=== PATIENT | male | born 1985 | race Caucasian/White ===

== ENCOUNTER 2019-06-23 16:10 | Emergency (ER) | payer OTHER ==
[2019-06-23 16:50] LABS: Absolute Lymphocytes (CBC) 1.7 K/uL (0.7-4.9); Basophils % 0.6 % (0-1.3); Hematocrit 38.6 % (39.6-49.0); Lymphocytes % 24.7 % (15.3-44.8); MPV 8.8 fL (7.6-11.3); RBC Red Blood Cell Count 4.15 M/uL (4.33-5.43)
[2019-06-23 17:03] LABS: Potassium 3.8 mmol/L (3.5-5.1)
--- NOTE | 2019-06-23 17:08 | RAD REPORT ---
EXAM DESCRIPTION: CT - Chest Abdomen Pelvis W Cont - 06/23/2019 4:43 pm CLINICAL HISTORY: Chest and abdomen pain. 15' fall with mid thoracic spine pain COMPARISON: No comparisons TECHNIQUE: Approximately 100 mL nonionic IV contrast was administered to the patient. All CT scans are performed using dose optimization technique as appropriate and may include automated exposure control or mA/KV adjustment according to patient size. FINDINGS: The lungs are clear.No pleural or pericardial effusion.No intrathoracic adenopathy. The liver, spleen, pancreas, adrenal glands and kidneys are within normal limits. No bowel obstruction, free air, free fluid or abscess. Appendectomy. No pathologic lymphadenopathy i n the abdomen or pelvis. Acute fracture with surrounding paraspinal hematoma affects T8 vertebral level. The vertebral body de monstrates mild to moderate loss of vertebral body height estimated at 25%. Fracture is seen to exten d into both pedicles involving both lateral masses as well as the spinous process of T7. No canal com promise is seen, however. In addition there are hairline fractures of the left posterior T8, T7 and T 6 and T5 ribs. There is also minimal fracture of the T5 spinous process. IMPRESSION: T8 thoracic vertebral level fracture is present with moderate surrounding paraspinal hem atoma however without canal compromise.The fracture is seen to extend into the posterior elements inc luding both pedicles, lateral masses as well as the T7 spinous process. Mild T5 spinous process fract ure also seen. Nondisplaced fractures involve the left posterior T5-8 ribs.
[2019-06-23] MEDS ORDERED: TETANUS & DIPHTHERIA TOX,ADULT 0.5 ML VIAL ONE (17:43)
--- NOTE | 2019-06-23 17:44 | ER ---
Nurse's Notes [facility] Name: Juarez Lucas Age: 34 yrs Sex: Male : 1985 Arrival Date: 06/23/2019 Time: 16:13 Bed 2 Private MD: Diagnosis: T8 fracture with 25% height loss, T5-T8 posterior rib fracture, T5 spinus process fracture. Presentation: 06/23 16:17 Presenting complaint: Patient states: Was cutting limb near tree house and fell approx ph 15 feet, landed on back, denies LOC, c/o chest and back pain, abrasions and bruising noted to tonia legs, pt denies dizziness or SOB. Transition of care: patient was not received from another setting of care. Onset of symptoms was June 23, 2019. Risk Assessment: Do you want to hurt yourself or someone else? Patient reports no desire to harm self or others. Initial Sepsis Screen: Does the patient meet any 2 criteria? No. Patient's initial sepsis screen is negative. Does the patient have a suspected source of infection? No. Patient's initial sepsis screen is negative. Care prior to arrival: None. 16:17 Method Of Arrival: Wheelchair ph 16:17 Acuity: SUSU 2 ph Historical: - Allergies: 16:19 No Known Allergies; ph - Home Meds: 16:19 None [Active]; ph - PMHx: 16:19 None; ph - PSHx: 16:19 ankle; ph Screenin:30 Abuse screen: Denies threats or abuse. Denies injuries from another. Nutritional sg screening: No deficits noted. Tuberculosis screening: No symptoms or risk factors identified. Never had TB. Fall Risk None identified. Primary Survey: 16:30 NO uncontrolled hemorrhage observed. A: The patient is alert. Airway: patent, No sg supplemental oxygen in use on arrival. Oral cavity: clear, Trachea midline. Breathing/Chest: Respiratory pattern: regular, Respiratory effort: spontaneous, unlabored, Breath sounds: clear, Chest inspection: symmetrical rise and fall of the chest. Circulation: Heart tones present. Pulses: palpable right radial artery, right dorsalis pedis artery, left radial artery and left dorsalis pedis artery. Skin color: pink. Disability Alert. Exposure/Environment: All clothing and personal items were removed. Forensic evidence collection is not deemed to be indicated at this time. Items placed in patient belonging bag. There is no evidence of uncontrolled external bleeding. No obvious injuries are noted at this time. Secondary Survey: 16:30 HEENT: Head Other abrasion to left side occipital area Face No injury/deformity Eyes: sg No injury or deformity noted. Ears: clear bilaterally. Nose: clear to bilateral nares. Throat: No injury or deformity noted. Gastrointestinal: Abdomen is soft, non-distended. : No signs and/or symptoms were reported regarding the genitourinary system. Musculoskeletal: Circulation, motion, and sensation intact. Range of motion: intact in all extremities, Swelling absent Reports pain in lumbar area ambulatory from ground to car for transport to ER. Assessment: 16:30 Reassessment: Patient appears in no apparent distress at this time. Patient and/or sg family updated on plan of care and expected duration. Pain level reassessed. Patient is alert, oriented x 3, equal unlabored respirations, skin warm/dry/pink. 17:30 Reassessment: Patient appears in no apparent distress at this time. Patient and/or sg family updated on plan of care and expected duration. Pain level reassessed. Patient is alert, oriented x 3, equal unlabored respirations, skin warm/dry/pink. 17:55 Reassessment: at bedside updating on POC, New orders, results and need for sg transfer, pt and pt family stated understanding. 18:00 Reassessment: Patient appears in no apparent distress at this time. Patient and/or sg family updated on plan of care and expected duration. Pain level reassessed. Patient is alert, oriented x 3, equal unlabored respirations, skin warm/dry/pink. pt transported back to CT for CT head and C-Spine. 18:12 Reassessment: Patient appears in no apparent distress at this time. awaiting CT results sg of head and neck prior to calling report to receiving facility at this time. 18:40 Reassessment: Patient appears in no apparent distress at this time. Patient and/or sg family updated on plan of care and expected duration. Pain level reassessed. Patient is alert, oriented x 3, equal unlabored respirations, skin warm/dry/pink. pt medicated as ordered, pt family remains at bedside, awaiting transport to receiving facility at this time. 18:45 Reassessment: report called to ALEJANDRO Weber for [facility]. sg 19:05 Reassessment: complaints of back pain, ED provider aware with order made and carried rr5 out. General: Appears in no apparent distress. uncomfortable, Behavior is calm, cooperative, appropriate for age. Pain: Complains of pain in back Pain radiates to abdomen Pain currently is 8 out of 10 on a pain scale. Quality of pain is described as aching, Pain began suddenly, Is intermittent. Neuro: Level of Consciousness is awake, alert, obeys commands, Oriented to person, place, time, situation, Appropriate for age. Cardiovascular: Capillary refill < 3 seconds Patient's skin is warm and dry. Respiratory: Airway is patent Respiratory effort is even, unlabored, Respiratory pattern is regular, symmetrical. GI: No signs and/or symptoms were reported involving the gastrointestinal system. : No signs and/or symptoms were reported regarding the genitourinary system. EENT: No signs and/or symptoms were reported regarding the EENT system. Derm: Skin is intact, is healthy with good turgor, Skin temperature is warm. Musculoskeletal: Capillary refill Reports pain in back Pain is 8 out of 10 on a pain scale. 19:30 Reassessment: ED provider aware with order made and carried out. Patient states rr5 symptoms have not improved. Pain: Complains of pain in back Pain currently is 8 out of 10 on a pain scale. Quality of pain is described as aching. 20:00 Reassessment: Patient appears in no apparent distress at this time. Patient and/or rr5 family updated on plan of care and expected duration. Pain level reassessed. report given to [facility] vitally stable, breathing spontaneously at room air. for transfer to [facility]. Patient states symptoms have improved. Vital Signs: 16:19 BP 145 / 83; Pulse 78; Resp 18; Temp 97.8; Pulse Ox 98% on R/A; Weight 102.06 kg; ph 17:09 BP 110 / 63; Pulse 59; Resp 18; Pulse Ox 99% on R/A; mh5 18:41 BP 110 / 63; Pulse 51; Resp 18; Temp 100.0(O); Pulse Ox 99% on R/A; mh5 19:05 BP 141 / 75; Pulse 55; Resp 16; Temp 99.5; Pulse Ox 99% ; Pain 8/10; rr5 19:52 BP 156 / 81; Pulse 67; Resp 16; Pulse Ox 96% on R/A; rv Kermit Coma Score: 19:05 Eye Response: spontaneous(4). Verbal Response: oriented(5). Motor Response: obeys rr5 commands(6). Total: 15. Trauma Score (Adult): 19:05 Eye Response: spontaneous(1); Verbal Response: oriented(1); Motor Response: obeys rr5 commands(2); Systolic BP: > 89 mm Hg(4); Respiratory Rate: 10 to 29 per min(4); Kermit Score: 15; Trauma Score: 12 ED Course: 16:13 Patient arrived in ED. mr 16:15 Niko Hunt MD is Attending Physician. kdr 16:18 Triage completed. ph 16:28 Initial lab(s) drawn, by me, sent to lab. Inserted saline lock: 20 gauge in right sg antecubital area, using aseptic technique. Blood collected. 16:30 Pulse ox on. NIBP on. Warm blanket given. Head of bed lowered. sg 16:33 Geremias Suárez, RN is Primary Nurse. sg 16:42 CT completed. Patient tolerated procedure well. Patient moved back from CT. mw3 16:43 CT Chest, Abdomen, Pelvis - W/Contrast In Process Unspecified. EDMS 17:10 Patient has correct armband on for positive identification. Placed in gown. mh5 17:[address] via stretcher. sg 18:02 CT Head C Spine In Process Unspecified. EDMS 18:06 Patient moved back from CT. sg 20:00 No provider procedures requiring assistance completed. Patient transferred, IV remains rr5 in place. intact, No redness/swelling at site. Administered Medications: 18:00 Drug: Tetanus-Diphtheria Toxoid Adult 0.5 ml {Bufferer: Kiip. Exp: 01/04/2021. Lot #: [id number]. } Route: IM; Site: right deltoid; 18:40 Follow up: Response: No adverse reaction sg 18:40 Drug: morphine 4 mg Route: IVP; Site: right antecubital; sg 19:05 Follow up: Response: No adverse reaction; Pain is unchanged, physician notified; RASS: rr5 Alert and Calm (0) 18:42 Drug: Zofran 4 mg Route: IVP; Site: right antecubital; sg 19:30 Follow up: Response: No adverse reaction rr5 19:06 Drug: morphine 4 mg {Note: rass 0.} Route: IVP; Site: right antecubital; rv 19:30 Follow up: Response: Pain is unchanged, physician notified; RASS: Alert and Calm (0) rr5 19:11 Drug: NS 0.9% 1000 ml Route: IV; Rate: 1 bolus; Site: right antecubital; rr5 20:00 Follow up: IV Status: Infusion continued upon transfer rr5 19:31 Drug: Zofran 4 mg Route: IVP; Site: right antecubital; rr5 20:00 Follow up: Response: No adverse reaction rr5 19:33 Drug: Dilaudid 1 mg {Note: rass 0.} Route: IVP; Site: right antecubital; rr5 20:05 Follow up: Response: No adverse reaction; Pain is decreased; RASS: Alert and Calm (0) rr5 20:00 Drug: morphine 4 mg {Note: rass 0.} Route: IVP; Site: right antecubital; rr5 20:03 Follow up: Response: Other; RASS: Alert and Calm (0); admisnistered prior to transfer rr5 Intake: Output: 19:30 Urine: 750ml (Voided); Total: 750ml. rr5 Outcome: 17:43 ER care complete, transfer ordered by . kdr 20:00 Transferred by ground EMS to [facility], Transfer form completed. rr5 20:00 Condition: stable rr5 20:00 Instructed on the need for transfer. 20:05 Patient's length of stay in the Emergency Department was greater than 2 hours. awaiting rr5 for transferPatient's length of stay extended due to 20:07 Patient left the ED. rr5 Signatures: Dispatcher [employer] EDMS Geremias Suárez RN RN sg Rittger, Kevin, MD MD [facility] Sharyn Pastrana Patricia, RN RN Siobhan Mejia Julienne Martin 3 Isiah Tariq RN RN Paul Haas RN RN rr5
--- NOTE | 2019-06-23 17:45 | EDPHYS ---
Physician Documentation [facility] Name: Juarez Lucas Age: 34 yrs Sex: Male : 1985 Arrival Date: 06/23/2019 Time: 16:13 Bed 2 Private MD: ED Physician Niko Hunt HPI: 06/23 16:27 This 34 yrs old Male presents to ER via Wheelchair with complaints of Fall kdr Injury. 16:27 Details of fall: The patient fell from a height, from a ladder, approximately 15 feet. kdr Onset: The symptoms/episode began/occurred suddenly, just prior to arrival. Associated injuries: The patient sustained upper back injury, decreased range of motion, pain, pain with movement, tenderness. Severity of symptoms: At their worst the symptoms were mild, just prior to arrival, in the emergency department the symptoms are unchanged. The patient has not experienced similar symptoms in the past. The patient has not recently seen a physician. Historical: - Allergies: 16:19 No Known Allergies; ph - Home Meds: 16:19 None [Active]; ph - PMHx: 16:19 None; ph - PSHx: 16:19 ankle; ph ROS: 16:27 Constitutional: Negative for fever, chills, and weight loss, Eyes: Negative for injury, kdr pain, redness, and discharge, ENT: Negative for injury, pain, and discharge, Neck: Negative for injury, pain, and swelling, Cardiovascular: Negative for chest pain, palpitations, and edema, Respiratory: Negative for shortness of breath, cough, wheezing, and pleuritic chest pain, Abdomen/GI: Negative for abdominal pain, nausea, vomiting, diarrhea, and constipation, : Negative for injury, bleeding, discharge, and swelling, MS/Extremity: Negative for deformity - there are multiple abrasions to both knees Skin: Negative for injury, rash, and discoloration, Neuro: Negative for headache, weakness, numbness, tingling, and seizure activity. Psych: Negative for depression, anxiety, suicide ideation, homicidal ideation, and hallucinations, Allergy/Immunology: Negative for hives, rash, and allergies, Endocrine: Negative for neck swelling, polydipsia, polyuria, polyphagia, and marked weight changes, Hematologic/Lymphatic: Negative for swollen nodes, abnormal bleeding, and unusual bruising. 16:27 Back: Positive for injury or acute deformity, pain at rest, pain with movement, of the thoracic area. Exam: 16:27 Constitutional: This is a well developed, well nourished patient who is awake, alert, kdr and in no acute distress. Head/Face: Normocephalic, atraumatic. Eyes: Pupils equal round and reactive to light, extra-ocular motions intact. Lids and lashes normal. Conjunctiva and sclera are non-icteric and not injected. Cornea within normal limits. Periorbital areas with no swelling, redness, or edema. Neck: Trachea midline, no thyromegaly or masses palpated, and no cervical lymphadenopathy. Supple, full range of motion without nuchal rigidity, or vertebral point tenderness. No Meningismus. Chest/axilla: Normal chest wall appearance and motion. Nontender with no deformity. No lesions are appreciated. Cardiovascular: Regular rate and rhythm with a normal S1 and S2. No gallops, murmurs, or rubs. Normal PMI, no JVD. No pulse deficits. Respiratory: Lungs have equal breath sounds bilaterally, clear to auscultation and percussion. No rales, rhonchi or wheezes noted. No increased work of breathing, no retractions or nasal flaring. Abdomen/GI: Soft, non-tender, with normal bowel sounds. No distension or tympany. No guarding or rebound. No evidence of tenderness throughout. Skin: Warm, dry with normal turgor. Normal color with no rashes, no lesions, and no evidence of cellulitis. MS/ Extremity: Pulses equal, no cyanosis. Neurovascular intact. Full, normal range of motion. Neuro: Awake and alert, GCS 15, oriented to person, place, time, and situation. Cranial nerves II-XII grossly intact. Motor strength 5/5 in all extremities. Sensory grossly intact. Cerebellar exam normal. Normal gait. Psych: Awake, alert, with orientation to person, place and time. Behavior, mood, and affect are within normal limits. 16:27 Back: pain, that is mild, of the thoracic area, ROM is painful, with all movement, normal spinal alignment noted, CVA tenderness, is absent. Vital Signs: 16:19 BP 145 / 83; Pulse 78; Resp 18; Temp 97.8; Pulse Ox 98% on R/A; Weight 102.06 kg; ph 17:09 BP 110 / 63; Pulse 59; Resp 18; Pulse Ox 99% on R/A; mh5 18:41 BP 110 / 63; Pulse 51; Resp 18; Temp 100.0(O); Pulse Ox 99% on R/A; mh5 19:05 BP 141 / 75; Pulse 55; Resp 16; Temp 99.5; Pulse Ox 99% ; Pain 8/10; rr5 19:52 BP 156 / 81; Pulse 67; Resp 16; Pulse Ox 96% on R/A; rv Jaylen Coma Score: 19:05 Eye Response: spontaneous(4). Verbal Response: oriented(5). Motor Response: obeys rr5 commands(6). Total: 15. Trauma Score (Adult): 19:05 Eye Response: spontaneous(1); Verbal Response: oriented(1); Motor Response: obeys rr5 commands(2); Systolic BP: > 89 mm Hg(4); Respiratory Rate: 10 to 29 per min(4); [place] Score: 15; Trauma Score: 12 MDM: 16:27 Data reviewed: vital signs, nurses notes, lab test result(s), radiologic studies. kdr Counseling: I had a detailed discussion with the patient and/or guardian regarding: the historical points, exam findings, and any diagnostic results supporting the discharge/admit diagnosis, lab results, radiology results, the need for outpatient follow up. 17:43 Patient medically screened. [facility] 06/23 16:22 Order name: Basic Metabolic Panel; Complete Time: 17:30 [facility] 06/23 16:22 Order name: CBC with Diff; Complete Time: 17:30 [facility] 06/23 16:22 Order name: CT Chest, Abdomen, Pelvis - W/Contrast; Complete Time: 17:30 [facility] 06/23 16:22 Order name: Creatinine for Radiology; Complete Time: 17:30 [facility] 06/23 16:22 Order name: Type And Screen [facility] 06/23 17:37 Order name: CT Head C Spine [facility] 06/23 16:22 Order name: Labs collected and sent; Complete Time: 16:33 kdr Administered Medications: 18:00 Drug: Tetanus-Diphtheria Toxoid Adult 0.5 ml {Manager Steel: Balzo. Exp: sg 01/04/2021. Lot #: [id number]. } Route: IM; Site: right deltoid; 18:40 Follow up: Response: No adverse reaction sg 18:40 Drug: morphine 4 mg Route: IVP; Site: right antecubital; sg 19:05 Follow up: Response: No adverse reaction; Pain is unchanged, physician notified; RASS: rr5 Alert and Calm (0) 18:42 Drug: Zofran 4 mg Route: IVP; Site: right antecubital; sg 19:30 Follow up: Response: No adverse reaction rr5 19:06 Drug: morphine 4 mg {Note: rass 0.} Route: IVP; Site: right antecubital; rv 19:30 Follow up: Response: Pain is unchanged, physician notified; RASS: Alert and Calm (0) rr5 19:11 Drug: NS 0.9% 1000 ml Route: IV; Rate: 1 bolus; Site: right antecubital; rr5 20:00 Follow up: IV Status: Infusion continued upon transfer rr5 19:31 Drug: Zofran 4 mg Route: IVP; Site: right antecubital; rr5 20:00 Follow up: Response: No adverse reaction rr5 19:33 Drug: Dilaudid 1 mg {Note: rass 0.} Route: IVP; Site: right antecubital; rr5 20:05 Follow up: Response: No adverse reaction; Pain is decreased; RASS: Alert and Calm (0) rr5 20:00 Drug: morphine 4 mg {Note: rass 0.} Route: IVP; Site: right antecubital; rr5 20:03 Follow up: Response: Other; RASS: Alert and Calm (0); admisnistered prior to transfer rr5 Disposition: 06/23/19 17:43 Transfer ordered to [facility]. Diagnosis is T8 fracture with 25% height loss, T5-T8 posterior rib fracture, T5 spinus process fracture.. - Reason for transfer: Higher level of care. - Accepting physician is [facility]: Dr. Roman. - Condition is Fair. - Problem is new. - Symptoms are unchanged. Signatures: Dispatcher [employer] EDGeremias Burris RN RN Sean Parra MD MD cha Rittger, Kevin, MD MD kdr Hall, Patricia, RN RN Isiah Tariq RN RN Paul Haas RN RN rr5 Corrections: (The following items were deleted from the chart) 17:51 17:43 06/23/2019 17:43 Transfer ordered to [facility]. kdr Diagnosis is T8 fracture with 25% height loss, T5-T8 posterior rib fracture, T5 spinus process fracture.. Reason for transfer: Higher level of care. Accepting physician is [facility]. Condition is Fair. Problem is new. Symptoms are unchanged. kdr 20:07 17:51 06/23/2019 17:43 Transfer ordered to [facility]. rr5 Diagnosis is T8 fracture with 25% height loss, T5-T8 posterior rib fracture, T5 spinus process fracture.. Reason for transfer: Higher level of care. Accepting physician is [facility]: Dr. Roman. Condition is Fair. Problem is new. Symptoms are unchanged. kdr
[2019-06-23] MEDS ORDERED: ONDANSETRON 4 MG/2 ML VIAL ONE ×2 (18:34→19:28)
[2019-06-23] MEDS ORDERED: MORPHINE 4 MG/ML SYR ONE ×3 (18:34→19:08)
--- NOTE | 2019-06-23 18:41 | RAD REPORT ---
EXAM DESCRIPTION: CT - [id number] - 06/23/2019 6:02 pm CLINICAL HISTORY: Trauma, head and neck injury. s/p fall;Pain COMPARISON: Chest Abdomen Pelvis W Cont dated 06/23/2019 TECHNIQUE: Axial 5 mm thick images of the head were obtained. Axial 2 mm thick images of the cervical spine were obtained with sagittal and coronal reconstruction images generated and reviewed. All CT scans are performed using dose optimization technique as appropriate and may include automated exposure control or mA/KV adjustment according to patient size. FINDINGS: CT HEAD WITHOUT CONTRAST: No acute hemorrhage, hydrocephalus or extra-axial collection is identified.No areas of brain edema or midline shift. The paranasal sinuses and mastoids are clear.The calvarium is intact. CT CERVICAL SPINE WITHOUT CONTRAST: No fracture or subluxation.No prevertebral soft tissues swelling is identified. IMPRESSION: No acute intracranial or cervical spine findings.
[2019-06-23] MEDS ORDERED: NA CHLORIDE 0.9% 1,000 ML ONE (19:09)
[2019-06-23] MEDS ORDERED: HYDROMORPHONE HCL 1 MG/ML INJ ONE (19:28)
[2019-06-23 21:05] VITALS: TEMP 99.5
[2019-06-23 21:06] VITALS: BP 156/81; O2SAT 96
== END 2019-06-23 20:07 | disposition short-term general hospital (02) ==
LOC: ER 16:10
DX: S22.069A Unspecified fracture of T7-T8 vertebra, initial encounter for closed fracture (principal); S22.42XA Multiple fractures of ribs, left side, initial encounter for closed fracture; W11.XXXA Fall on and from ladder, initial encounter; Y93.9 Activity, unspecified; Y92.9 Unspecified place or not applicable; Z23 Encounter for immunization
CPT/HCPCS: 96361; 85025; 80048; 36415; 86900; 86850; 86901; 70450; 72125; 71260; 74177; 90471; 90714; 96375; 96374; 99285; Q9967; J1170; J7030; J2405 ×2